=== PATIENT | male | born 1960 | race Caucasian/White ===

== ENCOUNTER 2017-11-10 16:14 | Inpatient (IN) | payer BC ==
[~2017-11-10] VITALS: Ht 172.7 cm; Wt 91.2 kg
[2017-11-10] MEDS ORDERED: BUSP10TA3 PO (17:34)
[2017-11-10] MEDS ORDERED: TRIA1CAP6 PO (17:34)
--- NOTE | 2017-11-10 19:11 | NUR ---
PT IS IN ROOM #2B. DR MILLER EVALUATED THE PT.
[2017-11-10 19:39] LABS: BASOPHILS # (AUTO) 0.1 K/uL (0.0-8.0); BASOPHILS % (AUTO) 0.9 % (0.0-2.0); EOSINOPHILS # (AUTO) 0.3 K/uL (0.0-0.7); EOSINOPHILS % (AUTO) 5.1 % (0.0-7.0); HEMATOCRIT 43.9 % (36.7-47.1); HEMOGLOBIN 15.1 g/dL (12.5-16.3); LYMPHOCYTES % (AUTO) 34.2 % (20.5-51.5); MEAN CORPUSCULAR HEMOGLOBIN 33.4 uug (23.8-33.4); MEAN CORPUSCULAR HGB CONC 35 g/dL (32.5-36.3); MEAN CORPUSCULAR VOLUME 96.9 fL (73.0-96.2); MONOCYTES # (AUTO) 0.6 K/uL (2.0-10.0); MONOCYTES % (AUTO) 9.3 % (0.0-11.0); NEUTROPHILS % (AUTO) 50.5 % (38.5-71.5); PLATELET COUNT (AUTO) 251 K/uL (152-348); RED BLOOD CELL COUNT(AUTO) 4.52 MIL/uL (4.06-5.63)
[2017-11-10 19:54] LABS: CREATININE 1.2 mg/dL (0.6-1.3); POTASSIUM 3.5 mmol/L (3.5-5.1)
[2017-11-10 20:10] LABS: BILIRUBIN,DIRECT 0.1 mg/dL (0.0-0.2); BILIRUBIN,TOTAL 0.2 mg/dL (0.2-1.0); TOTAL PROTEIN, SERUM 7.4 g/dL (6.4-8.2)
--- NOTE | 2017-11-10 20:50 | NUR ---
MD MILLER AT BEDSIDE DISCUSSING TX OPTIONS WITH PT
[2017-11-10] MEDS ORDERED: ASPIRIN 325 MG TABLET PO ONE (21:15)
[2017-11-10] MEDS ORDERED: ACETAMINOPHEN ES 500 MG TABLET PO ONE (21:15)
[2017-11-10] MEDS ORDERED: ACETAMINOPHEN 325 MG TABLET ONE (21:35)
[2017-11-10] MEDS ORDERED: ASPIRIN 325 MG TABLET ONE (21:36)
--- NOTE | 2017-11-10 22:05 | NUR ---
REPORT GIVEN TO TELEMETRY NURSE, URBANO GORE
--- NOTE | 2017-11-10 22:30 | NUR ---
PT IN BED. PT IS A&OX4. PT DENIES CHEST PAIN AT THIS TIME. VSS. NO SIGNS OF DISTRESS WITNESSED BY NURSE OR EXPRESSED BY PT AT THIS TIME.
--- NOTE | 2017-11-10 23:45 | NUR ---
Pt. admitted to TELEMETRY, under care of Dr. ALVAREZ Belongs List completed
--- NOTE | 2017-11-10 23:50 | NUR ---
Received patient from ER via gurney. Ushered safely to room. TELE leads placed, SR. Belongings list done. No acute distress noted. No c/o of pain or SOB. A/O x 4. Ambulatory. Skin check done. No skin issues noted. Safety initiated. Room is clutter free. Bed in low and locked position. Will closely monitor.
[2017-11-10] MEDS ORDERED: IV 1/2NS 1000 ML 1,000 ML IV PRN (23:57)
[2017-11-11] MEDS ORDERED: NITROGLYCERIN 0.4 MG/TAB BOTTLE SL PRN
[2017-11-11] MEDS ORDERED: MAGNESIUM HYDROXIDE 30 ML LIQUID UDC PO PRN
[2017-11-11] MEDS ORDERED: ACETAMINOPHEN 325 MG TABLET PO PRN
[2017-11-11] MEDS ORDERED: ONDANSETRON 4 MG/2 ML VIAL IV PRN
[2017-11-11] MEDS ORDERED: ZOLPIDEM 5 MG TABLET PO PRN
[2017-11-11] MEDS ORDERED: HYDROCODONE/APAP 5-325MG TABLET PO PRN
[2017-11-11] MEDS ORDERED: Z GUARD REMEDY PASTE 57 GM TUBE TOP PRN
[2017-11-11 00:05] VITALS: BP 127/79
[2017-11-11 04:05] VITALS: BP 116/73
--- NOTE | 2017-11-11 05:30 | NUR ---
Patient slept t/o shift. No c/o pain or SOB. TELE SR. Remains A/O x 4. IVF infusing. Safety and comfort measures maintained t/o shift. All needs met.
[2017-11-11 06:05] LABS: BASOPHILS % (AUTO) 0.8 % (0.0-2.0); EOSINOPHILS # (AUTO) 0.3 K/uL (0.0-0.7); EOSINOPHILS % (AUTO) 7.3 % (0.0-7.0); HEMATOCRIT 44.9 % (36.7-47.1); HEMOGLOBIN 15.5 g/dL (12.5-16.3); LYMPHOCYTES # (AUTO) 1.8 K/uL (20.0-40.0); LYMPHOCYTES % (AUTO) 39.3 % (20.5-51.5); MEAN CORPUSCULAR HEMOGLOBIN 33.6 uug (23.8-33.4); MEAN CORPUSCULAR HGB CONC 34 g/dL (32.5-36.3); MEAN CORPUSCULAR VOLUME 97.5 fL (73.0-96.2); MONOCYTES # (AUTO) 0.7 K/uL (2.0-10.0); MONOCYTES % (AUTO) 13.9 % (0.0-11.0); NEUTROPHILS # (AUTO) 1.8 K/uL (1.8-8.9); NEUTROPHILS % (AUTO) 38.7 % (38.5-71.5); PLATELET COUNT (AUTO) 232 K/uL (152-348); RED BLOOD CELL COUNT(AUTO) 4.61 MIL/uL (4.06-5.63); WHITE BLOOD COUNT (AUTO) 4.7 K/uL (3.6-10.2)
[2017-11-11 06:37] LABS: BILIRUBIN,TOTAL 0.4 mg/dL (0.2-1.0); CREATININE 1.1 mg/dL (0.6-1.3); PHOSPHOROUS 5.5 mg/dL (2.5-4.9); POTASSIUM 3.8 mmol/L (3.5-5.1)
--- NOTE | 2017-11-11 07:47 | NUR ---
PATIENT RESTING COMFORTABLY IN BED, NO S/S OF DISTRESS, STABLE CONDITION. NO COMPLAINTS OF CHEST PAIN VERBALIZED BY PATIENT. AMBULATORY. BED IN LOCKED/LOW POSITION, SIDE RAILS UP X2, CALL LIGHT WITHIN REACH.
[2017-11-11] MEDS ORDERED: ASPIRIN 81 MG TAB.CHEW PO SCH (09:00)
[2017-11-11 09:27] VITALS: BP 132/78
[2017-11-11 11:42] VITALS: BP 124/79
[2017-11-11] MEDS ORDERED: ASPI81TA31 PO (14:45)
--- NOTE | 2017-11-11 15:40 | NUR ---
PATIENT DISCHARGED AT THIS TIME IN STABLE CONDITION. DISCHARGE INSTRUCTIONS PROVIDED. TELE-MONITOR BOX RETURNED, ID BAND TAKEN OFF, BELONGINGS RETURNED, INCLUDING MEDICATIONS.
[2017-11-11] MEDS ORDERED: busPIRone 10 MG TABLET PO SCH (17:00)
[2017-11-12] MEDS ORDERED: PANTOPRAZOLE SODIUM 40 MG TABLET.DR PO SCH (07:00)
[2017-11-12] MEDS ORDERED: Medication Not On Formulary EA (Triamterene/Hydrochlorothiazid (Triamterene-Hctz 37.5-25 PO SCH (09:00)
[2017-11-12] MEDS ORDERED: TRIAMTERENE/HCTZ 75-50 MG TABLET PO SCH (09:00)
== END 2017-11-11 15:40 | disposition home or self-care (01) | DRG 882 ==
LOC: ER 16:14 → TELE 23:26 → MED 11-11 14:50
PROVIDERS: ADMIT Internal Medicine; ATTEND Nurse Practitioner Acute Care
DX: F43.9 Reaction to severe stress, unspecified (principal); E83.39 Other disorders of phosphorus metabolism; R07.89 Other chest pain; E83.52 Hypercalcemia; E78.5 Hyperlipidemia, unspecified; I10 Essential (primary) hypertension; I70.0 Atherosclerosis of aorta; R00.1 Bradycardia, unspecified; Z86.010 Personal history of colon polyps; Z87.891 Personal history of nicotine dependence; Z90.49 Acquired absence of other specified parts of digestive tract; Z80.1 Family history of malignant neoplasm of trachea, bronchus and lung; Z82.0 Family history of epilepsy and other diseases of the nervous system; R74.0 Nonspecific elevation of levels of transaminase and lactic acid dehydrogenase [LDH]; Z79.82 Long term (current) use of aspirin
CPT/HCPCS: 36415; 70030-TC; 70450; 71045; 83735; 84100; 85025; 85730; 93005; 93307; A4663; J3490; J7030